=== PATIENT | female | born 1965 | race Caucasian/White ===

== ENCOUNTER 2021-10-10 17:10 | Emergency (ER) | payer BC, SELFPAY ==
[2021-10-10 17:40] VITALS: BP 149/81; PULSE 103; RESP 19; TEMP 37.6; O2SAT 97; BMI 30.9
[2021-10-10 17:54] LABS: Apearance,Urine Cloudy (Clear); Bilirubin,Urine 2+ (Negative); Blood, Urine 3+ (Negative); Color,Urine Dark Yellow (Yellow); Glucose,Urine (UA) Negative (Negative); Ketones,Urine 2+ (Negative); Protein,Urine 3+ (Negative); Urobilinogen,Urine 2 EU/dl (0.2)
[2021-10-10 17:55] LABS: UTC Leukocyte Esterase,Urine 2+ (Negative); UTC Nitrate,Urine Positive (Negative)
--- NOTE | 2021-10-10 18:02 | EXP.UTC ---
Discharge Plan Referrals Follow up/Referrals: Provider,Referral, MD [Primary Care Provider] - See instructions Discharge ED Provider: Escobar Pearl [facility] [place] General Stated complaint: vomiting, poss UTI,chills Mode of Arrival: Ambulatory Source of Information: Patient Limitations: No Limitations Time Seen by Provider: 10/10/21 17:55 Description of Symptoms (Recalled from Triage Doc. by RN): PATIENT C/O POSSIBLE UTI WITH CHILLS, VOMITING, LOWER BACK PAIN AND BOUTS OF CONFUSION X 1 WEEK HEENT Symptoms (Recalled from RN notes): No Resp Symptoms (Recalled from RN notes): No Skin Symptoms (Recalled from RN notes): No MS Symptoms (Recalled from RN notes): No Functional Status (Recalled from RN notes): WNL History of Present Illness Provider Complaint: Patient states that she thinks she may have a UTI States that she is in seeing her daughter and for the last week she has been having N/V, body aches, chills, low back pain, and burning like feeling like she has a UTI States that also she has been having episodes of feeling like she is confused and will do things and not remember doing them States that today she was still having chills and feeling achy all over so daughter made her come in to get checked Worker's Comp Is this a Worker's Comp case?: No [facility] Medical History (Updated 10/10/21 @ 18:01 by Jessica Randle RN) Hyperlipidemia Social History (Updated 10/10/21 @ 18:01 by Jessica Randle RN) Smoking Status: Unknown if ever smoked alcohol intake: never current occupational status: other Travel in the last 8 weeks: None ROS Obtained: Yes All systems reviewed & no additional complaints except as documented and Yes Systems reviewed as appropriate & no additional complaints except as documented Constitutional Constitutional: Reports system reviewed and no additional complaints, except as documented, Reports as per HPI, Reports body ache, Reports chills and Reports fever(s) ENT Ears, Nose, Mouth, and Throat: Reports system reviewed and no additional complaints, except as documented and Reports as per HPI Cardiovascular Cardiovascular: Reports system reviewed and no additional complaints, except as documented Respiratory Respiratory: Reports system reviewed and no additional complaints, except as documented Gastrointestinal Gastrointestingal: Reports system reviewed and no additional complaints, except as documented, nausea and vomiting Genitourinary Female Genitourinary: Reports system reviewed and no additional complaints, except as documented, Reports dysuria, Reports flank pain, Reports urinary frequency and Reports urinary urgency Musculoskeletal Musculoskeletal: Reports system reviewed and no additional complaints, except as documented Integumentary/Breasts Skin/Breast: Reports system reviewed and no additional complaints, except as documented and Reports as per HPI Neurologic Neurologic: Reports system reviewed and no additional complaints, except as documented and Reports confusion (reports episodes of feeling confused ) Physical Exam General General appearance: alert and in no apparent distress Respiratory Respiratory exam: Present normal lung sounds bilaterally; Absent respiratory distress Cardiovascular Cardiovascular exam: Present tachycardia Back Exam Back 1 view image: 1. reports pain Neurological Exam Neurological exam: Present alert, oriented X3 and normal gait Medical Decision Making Ariel Inquiry Pt receiving controlled substance: No Ariel was queried for this patient: No Vital Signs: 10/10/21 17:40 Temperature 99.6 F Temperature Source Oral Pulse Rate [Left Brachial] 103 H Respiratory Rate 19 Blood Pressure [Left Arm] 149/81 H Blood Pressure Mean [Left Arm] 103 Blood Pressure Source [Left Arm] Automatic Cuff Blood Pressure Position [Left Arm] Sitting 02 Sat by Pulse Oximetry 97 Oxygen Delivery Method Room Air Lab Data Lab results reviewed: Yes I reviewed the patient's lab res
--- NOTE | 2021-10-10 18:02 | PC.NURSE ---
PATIENT SENT TO ER PER Lucinda SAMPSON APRN FOR FURTHER EVALUATION. REPORT GIVEN TO Carlos DURAN RN BY Lucinda SAMPSON APRN
--- NOTE | 2021-10-10 18:13 | HMH.EDGENADL ---
Discharge Plan Disposition Patient Disposition: Home, Self-Care Condition: Good Prescriptions Prescriptions: New cephalexin 500 mg capsule 500 mg PO Q6H 7 Days Qty: 28 0RF Referrals Follow up/Referrals: Provider,Referral, [Primary Care Provider] - See instructions Clinical Impressions Clinical Impression: Urinary tract infection Instructions Patient Instructions: DI for Urinary Tract Infection (UTI), Cephalexin Print Language Print Language: Georgian Discharge ED Provider: Escobar Pearl General Adult HPI General Chief complaint: Urogenital-Female Stated complaint: vomiting, poss UTI,chills Time Seen by Provider: 10/10/21 17:55 Mode of Arrival: Ambulatory Source of Information: Patient Limitations: No Limitations Description of Symptoms (Recalled from ER Triage Doc. by RN): PATIENT C/O POSSIBLE UTI WITH CHILLS, VOMITING, LOWER BACK PAIN AND BOUTS OF CONFUSION X 1 WEEK History of Present Illness HPI narrative: assumed care from [email or web address] 56 yo/F with UTI, fever, confusion intermittently. Refer to original HPI. Related Data Previous Rx's Medication Instructions Recorded cephalexin 500 mg capsule 500 mg PO Q6H 7 days #28 caps 10/10/21 Allergies Allergy/AdvReac Type Severity Reaction Status Date / Time No Known Allergies Allergy Verified 10/10/21 18:12 [facility] Medical History Hyperlipidemia Social History Smoking Status: Never smoker alcohol intake: never current occupational status: other Travel in the last 8 weeks: None ROS Obtained: Yes All systems reviewed & no additional complaints except as documented Constitutional Constitutional: Reports fever(s) and Reports other (Confusion) Genitourinary Female Genitourinary: Reports dysuria Physical Exam General General appearance: alert and in no apparent distress Head Head exam: atraumatic, normocephalic and normal inspection Eye Eye exam: Present normal appearance, PERRL and EOMI ENT ENT exam: Present normal exam, normal oropharynx, mucous membranes moist, TM's normal bilaterally and normal external ear exam Neck Neck exam: Present normal inspection, full ROM and trachea midline; Absent meningismus or lymphadenopathy Chest Chest inspection: Present normal inspection and symmetric chest wall rise; Absent tenderness Respiratory Respiratory exam: Present normal lung sounds bilaterally; Absent respiratory distress Cardiovascular Cardiovascular exam: Present regular rate and normal rhythm; Absent JVD Abdominal Exam Abdominal exam: Present soft and normal bowel sounds; Absent distention, tenderness or guarding Extremities Exam Extremities exam: Present normal inspection, full ROM and normal capillary refill; Absent calf tenderness Back Exam Back exam: Present normal inspection; Absent tenderness Neurological Exam Neurological exam: Present alert and oriented X3 Psychiatric Psychiatric exam: Present normal affect and normal mood Skin Skin exam: Present warm, dry, intact and normal color Lymphatic Lymphatic Findings: no adenopathy Medical Decision Making Medical Records Medical records reviewed: Yes I reviewed the patient's medical records. Ariel Inquiry Pt receiving controlled substance: No Vital Signs: 10/10/21 17:40 10/10/21 18:24 10/10/21 18:18 Temperature 99.6 F 99.9 F H Temperature Source Oral Oral Pulse Rate 93 H Pulse Rate [Left Brachial] 103 H 104 H Respiratory Rate 19 18 16 Blood Pressure 144/90 H Blood Pressure [Left Arm] 149/81 H 144/90 H Blood Pressure Mean 110 Blood Pressure Mean [Left Arm] 103 108 Blood Pressure Source [Left Arm] Automatic Cuff Automatic Cuff Blood Pressure Position [Left Arm] Sitting Sitting 02 Sat by Pulse Oximetry 97 95 95 Oxygen Delivery Method Room Air Room Air Room Air 10/10/21 18:30 10/10/21 19:00 Temperature Temperature Source Pulse Rate 93 H 89
[2021-10-10 18:18] VITALS: BP 144/90; PULSE 93; RESP 16; O2SAT 95
[2021-10-10 18:24] VITALS: BP 144/90; PULSE 104; RESP 18; TEMP 37.7; O2SAT 95; BMI 30.9
[2021-10-10 18:30] VITALS: BP 136/82; PULSE 93; RESP 16; O2SAT 95
[2021-10-10 18:54] LABS: Basophils % 0.2 % (0.1-2.0); Eosinophils % 0.3 % (0.1-12.0); Hematocrit 41.3 % (37.0-47.0); Hemoglobin 13.7 g/dL (12.2-16.2); Lymphocytes # 0.7 K/mm3 (0.7-4.5); Lymphocytes % 6.2 % (10-50); Mean Corpuscular HGB Conc 33.1 g/dL (31.8-35.4); Mean Corpuscular Hemoglobin 30.7 pg (27.0-31.2); Mean Corpuscular Volume 92.8 fl (81-99); Mean Platelet Volume 8.5 fl (7.4-10.4); Monocytes # 0.8 K/mm3 (0.1-1.0); Monocytes % 7.3 % (1.7-9.3); Neutrophils # 9.3 K/mm3 (1.8-7.8); Neutrophils % 86.1 % (37.0-80.0); Platelet Count 228 K/mm3 (142-424); Red Blood Count 4.45 M/mm3 (4.20-5.40); Red Cell Distribution Width 12.8 % (11.5-17.5); White Blood Count 10.8 K/mm3 (4.8-10.8)
[2021-10-10 18:58] LABS: Alanine Aminotransferase 24 U/L (12-78); Albumin Level 4.2 g/dl (3.5-5.0); Albumin/Globulin Ratio 1.4 (1.1-1.8); Alkaline Phosphatase 99 U/L (38-126); Anion Gap 9.9 mEq/L (5-15); Aspartate Amino Transferase 27 U/L (14-36); Bilirubin,Total 1.5 mg/dl (0.2-1.3); Blood Urea Nitrogen 8 mg/dl (7-17); Calcium 9.3 mg/dl (8.4-10.2); Carbon Dioxide 27 mmol/L (22.0-30.0); Chloride 102 mmol/L (98-107); Creatinine Clearance Estimated 124 mL/min (50-200); Estimated Glomerular Filt Rate 103 ml/min (>60); GFR (African American) 124 ML/MIN (>60); Glucose 177 mg/dl (74-100); MANUAL DIFFERENTIAL MANUAL DIFFERENTIAL (MANUAL DIFF); Potassium 3.9 mmoL/L (3.5-5.1); Sodium 135 mmol/L (136-145); Total Protein,Serum 7.2 g/dl (6.3-8.2)
[2021-10-10 19:00] VITALS: BP 139/75; PULSE 89; RESP 16; O2SAT 95
[2021-10-10 19:15] LABS: Hypersegmented Neutrophils 1+; Lymphocytes % 9 % (10-50); Monocytes % 1 % (2-9); Neutrophils % 90 % (42-76); Platelet Estimate Normal; Total Cells Counted 100
[2021-10-10 19:35] VITALS: BP 144/77; PULSE 89; RESP 16; TEMP 37.5; O2SAT 95
== END 2021-10-10 19:37 | disposition home or self-care (01) ==
LOC: UTC 17:17 → ER 18:07
PROVIDERS: Nurse Practitioner; Emergency Provider Emergency Medicine
DX: N39.0 Urinary tract infection, site not specified (principal); B96.20 Unspecified Escherichia coli [E. coli] as the cause of diseases classified elsewhere
CPT/HCPCS: 80053; 81003; 85007; 85025; 87086; 87088; 87186; 96361; 96365; 96375; 99283; 99284; J0696; J2405